=== PATIENT | female | born 1965 | race Caucasian/White ===

== ENCOUNTER 2017-01-17 22:38 | Emergency (ER) | payer OTHER ==
[2017-01-17 23:04] VITALS: BP 148/97
== END 2017-01-18 01:11 | disposition home or self-care (01) ==
LOC: ED 22:38
DX: S61.204A Unspecified open wound of right ring finger without damage to nail, initial encounter (principal); R03.0 Elevated blood-pressure reading, without diagnosis of hypertension; W26.0XXA Contact with knife, initial encounter; Y93.89 Activity, other specified; Y92.89 Other specified places as the place of occurrence of the external cause; Y99.8 Other external cause status
CPT/HCPCS: 90715; J2001

== ENCOUNTER 2018-12-17 01:36 | Emergency (ER) | payer OTHER ==
[~2018-12-17] VITALS: Ht 149.9 cm; Wt 108.0 kg
[2018-12-17 01:59] VITALS: Ht 149.9 cm; Wt 108.0 kg
[2018-12-17 03:18] VITALS: BP 143/92
== END 2018-12-17 03:15 | disposition home or self-care (01) ==
LOC: ED 01:36
DX: B02.9 Zoster without complications (principal); R07.89 Other chest pain; J45.909 Unspecified asthma, uncomplicated; F41.9 Anxiety disorder, unspecified; Z90.89 Acquired absence of other organs; Z90.49 Acquired absence of other specified parts of digestive tract
CPT/HCPCS: J1885; J7512